=== PATIENT | female | born 2000 | race Caucasian/White ===

== ENCOUNTER 2021-01-28 15:45 | Inpatient (IN) | payer OTHER ==
[~2021-01-28] VITALS: Ht 160 cm; Wt 103.9 kg
[2021-01-28 15:57] VITALS: BP 119/77
[2021-01-28 17:08] LABS: ABSOLUTE NEUTROPHILS 14.7 thou/uL (1.4-8.2); BASOPHILS 0.2 % (0.0-2.0); EOSINOPHILS 0.1 % (0.0-3.0); HEMATOCRIT 36.6 % (37.0-47.0); HEMOGLOBIN 11.8 gm/dL (12.0-15.0); LYMPHOCYTES 6.6 % (24.0-44.0); MCH 25.8 pg (26.0-34.0); MCHC 32.4 g/dL (28.0-37.0); MCV 79.6 fL (80.0-100.0); PLATELET COUNT 306 thou/uL (150-400); POLYS 86.1 % (36.0-66.0); RDW 15.9 % (10.5-14.5); WBC 17.1 thou/uL (4.0-11.0)
[2021-01-28 17:16] LABS: CALCIUM 9.2 mg/dL (8.5-10.1); CREATININE 0.7 mg/dL (0.6-1.0)
[2021-01-28 17:20] LABS: INR 0.95; PROTIME 10.4 Seconds (10.5-12.1)
[2021-01-28 17:22] LABS: ALBUMIN 3.3 g/dL (3.4-5.0); TOTAL BILIRUBIN 0.6 mg/dL (0.2-1.0); TOTAL PROTEIN 7.9 g/dL (6.4-8.2)
[2021-01-28 17:56] LABS: URINE BILIRUBIN NEGATIVE (Negative); URINE BLOOD NEGATIVE (Negative); URINE CLARITY SL CLOUDY; URINE COLOR YELLOW; URINE GLUCOSE-RANDOM* NEGATIVE (Negative); URINE KETONES 1+ (Negative); URINE LEUKOCYTES-REFLEX NEGATIVE (Negative); URINE NITRITE-REFLEX NEGATIVE (Negative); URINE PROTEIN (DIPSTICK) TRACE (Negative); URINE SPECIFIC GRAVITY >= 1.030 (1.005-1.035); URINE UROBILINOGEN 0.2 E.U./dl (0.2-1.0)
[2021-01-28 21:06] LABS: CSF GLUCOSE 58 mg/dL (40-70); CSF PROTEIN 18 mg/dL (15-45)
[2021-01-28 21:17] LABS: CSF CLARITY CLEAR; CSF COLOR COLORLESS; CSF RBC 0 /mm3; CSF WBC 0 /mm3 (0-10); VOLUME 7.4 ml
[2021-01-29 09:54] LABS: HEMATOCRIT 34.6 % (37.0-47.0); MCH 25.3 pg (26.0-34.0); MCHC 31.9 g/dL (28.0-37.0); MCV 79.4 fL (80.0-100.0); RBC 4.36 mil/uL (4.20-5.00); RDW 15.7 % (10.5-14.5); WBC 13.7 thou/uL (4.0-11.0)
[2021-01-29 10:06] LABS: CALCIUM 8.5 mg/dL (8.5-10.1); CREATININE 0.7 mg/dL (0.6-1.0); POTASSIUM 4.2 mmol/L (3.5-5.1)
--- NOTE | 2021-01-29 12:27 | NUR ---
Chart reviewed and case discussed with the care team. Pt is being treated for viral meningitis and ID consulted. She is a&ox4 and indep prior to admission. The pt is a fulltime student. Has insurance in place for f/u care. Emergency contact is Lizbet Bell [phone]. No cm interventions indicated at this time. Will remain available should dc needs arise.
[2021-01-29 22:11] VITALS: BP 108/79
[2021-01-30 05:42] LABS: HEMATOCRIT 31.6 % (37.0-47.0); HEMOGLOBIN 10.2 gm/dL (12.0-15.0); MCH 26.3 pg (26.0-34.0); MCHC 32.4 g/dL (28.0-37.0); RBC 3.89 mil/uL (4.20-5.00); RDW 15.5 % (10.5-14.5); WBC 7.1 thou/uL (4.0-11.0)
[2021-01-30 06:09] LABS: CALCIUM 8.5 mg/dL (8.5-10.1); CREATININE 0.5 mg/dL (0.6-1.0); MAGNESIUM 1.7 mg/dL (1.8-2.4); POTASSIUM 4.6 mmol/L (3.5-5.1)
--- NOTE | 2021-01-30 08:18 | 2DMMODE ---
[facility] [place] [address] 2 D/M-MODE ECHOCARDIOGRAM Name: EROS BEAL Room #: 170-17 ADM IN M.R.#: [id number] Admission: 01/28/21 Attend Phys: Saeid Cedeno MD Discharge: Date of : 01 Report #: [id number] THIS REPORT FOR: cc: NO FAMILY PHYSICIAN or PCP NO FAMILY PHYSICIAN or PCP Phu Pacheco MD [facility] ~ APPROVED REPORT Study performed: 01/30/2021 07:30:17 EXAM: Comprehensive 2D, Doppler, and color-flow Echocardiogram Patient Location: ER Status: routine BSA: 1.93 HR: 81 bpm BP: 108/79 mmHg Rhythm: NSR Other Information Study Quality: Adequate Indications Chest Pain 2D Dimensions RVDd: 30.46 mm IVSd: 10.02 (7-11mm) LVOT Diam: 19.02 (18-24mm) LVDd: 46.18 mm PWd: 9.63 (7-11mm) Ascending Ao: 24.70 (22-36mm) LVDs: 30.86 (25-40mm) Left Atrium: 33.00 (27-40mm) Aortic Root: 28.15 mm Volumes Left Atrial Volume (Systole) Single Plane 4CH: 30.30 mL Single Plane 2CH: 19.55 mL LA ESV Index: 14.00 mL/m2 Aortic Valve AoV Peak Torsten.: 1.06 m/s AO Peak Gr.: 4.47 mmHg LVOT Max P.58 mmHg LVOT Max V: 0.95 m/s RENETTA Vmax: 2.54 cm2 [facility] [email or web address] [address] 2 D/M-MODE ECHOCARDIOGRAM Name: EROS BEAL Room #: 170-17 [facility] IN .R.#: [id number] Admission: 01/28/21 Attend Phys: Saeid Cedeno, Discharge: Date of : 01 Report #: [id number] Mitral Valve E/A Ratio: 2.0 MV Decel. Time: 134.47 ms MV E Max Torsten.: 1.00 m/s MV A Torsten.: 0.51 m/s MV PHT: 39.00 ms IVRT: 62.28 ms Pulmonary Valve PV Peak Torsten.: 0.92 m/s PV Peak Gr.: 3.37 mmHg Tricuspid Valve TR Peak Torsten.: 2.01 m/s RAP Estimate: 5.00 mmHg TR Peak Gr.: 16.15 mmHg PA Pressure: 21.00 mmHg Left Ventricle The left ventricle is normal size. There is normal LV segmental wall motion. There is normal left ventricular wall thickness. Left ventricular systolic function is normal. LVEF is 60-65%. The left ventricular diastolic function is normal. Right Ventricle The right ventricle is normal size. The right ventricular systolic function is normal. Atria The left atrium size is normal. The right atrium size is normal. Aortic Valve The aortic valve is normal in structure. No aortic regurgitation is present. There is no aortic valvular stenosis. Mitral Valve The mitral valve is normal in structure. Trace mitral regurgitation. No evidence of mitral valve stenosis. Tricuspid Valve The tricuspid valve is normal in structure. Trace tricuspid regurgitation. Estimated PAP is 21mmHg. Pulmonic Valve The pulmonary valve is normal in structure. Trace pulmonic regurgitation. [facility] [address] [place] [address] 2 D/M-MODE ECHOCARDIOGRAM Name: EROS BEAL Room #: 170-17 ADM IN M.R.#: [id number] Admission: 01/28/21 Attend Phys: Saeid Cedeno, Discharge: Date of : 01 Report #: [id number] Great Vessels The aortic root is normal in size. The ascending aorta is normal in size. IVC is normal in size and collapses >50% with inspiration. Pericardium There is no pericardial effusion. <Conclusion> Normal left ventricle size/wall thickness Ejection fraction 60% Normal right ventricular size/function Normal atrial size Normal aortic valve structure and function Trace mitral valve insufficiency Trace tricuspid valve insufficiency Pulmonary systolic pressure estimated 21 mmHg No pericardial effusion Normal aortic root size <ELECTRONICALLY SIGNED> By: Phu Pacheco MD, [facility] 01/30/21817 7 7 Phu Pacheco MD, FACC /INF
[2021-01-30 09:47] VITALS: BP 119/90
--- NOTE | 2021-01-30 12:25 | HC ---
[facility] [place] [address] CONSULTATION Name: EROS BEAL Room #: 170-17 ADM IN M.R.#: [id number] Admission: 01/28/21 Attend Phys: Saeid Cedeno MD Discharge: Date of : 01 Report #: [id number] THIS REPORT FOR: cc: NO FAMILY PHYSICIAN or PCP NO FAMILY PHYSICIAN or PCP Arturo Hernandez MD ~ DATE OF SERVICE: 01/29/2021 INFECTIOUS DISEASE CONSULTATION ATTENDING PHYSICIAN: Dr. Borrero. REASON FOR EVALUATION: Febrile illness with pharyngitis. HISTORY OF PRESENT ILLNESS: Chart reviewed. The patient examined. This is a 21-year-old woman without significant medical history, although does have a history of migraines, who had onset of illness as she awoke earlier this week, described headache that became more severe, associated neck stiffness, ultimately had fevers in excess of 102. She was evaluated in Urgent Care setting. Evaluation was otherwise unremarkable for rapid testing strep, RSV, influenza and COVID. She was referred for concern about meningitis presentation. She was not encephalopathic. Did undergo a lumbar puncture, which was unremarkable. No white cells, no red cells, normal protein and glucose. Culture was sent. Angiography showed no evidence of aneurysm, occlusion or dissection. Urinalysis was otherwise unremarkable. Chest x-ray, perhaps some mild basilar atelectasis. test was negative. Did have elevated white count initially at 17.1, repeat was down to 13. She is lucid. Has not been empirically started on antibiotics at this point. ALLERGIES: None known. CURRENT MEDICATIONS: Include tramadol, ondansetron, sumatriptan, orphenadrine as needed. PAST MEDICAL HISTORY: History of migraine headaches, anxiety and depression. 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 No recent travel. Does have cats including a kitten. She is sexually active, uses marijuana and vapes, alcohol on special occasions. FAMILY HISTORY: Noncontributory. REVIEW OF SYSTEMS: Otherwise, unremarkable. PHYSICAL EXAMINATION: GENERAL: She is alert, cooperative, appropriate. She is in mild to moderate [facility] [address] [place] [address] CONSULTATION Name: EROS BEAL Room #: 170-17 ADM IN [facility]#: [id number] Admission: 01/28/21 Attend Phys: Saeid Cedeno MD Discharge: Date of : 01 Report #: [id number] distress. She is lucid. Some decreased range of motion about the cervical spine. VITAL SIGNS: Temperature 98.8, pulse 104, respirations 18, blood pressure 126/80. HEENT: Extraocular muscles intact. There is some tender adenopathy in cervical region. LUNGS: Generally clear to auscultation. Few crackles at the bases. HEART: Regular, borderline tachycardic. I do not appreciate any murmur. ABDOMEN: Soft, nontender, mildly distended. GENITOURINARY AND RECTAL: Deferred. SKIN: No rashes. LABORATORY DATA: Procalcitonin 0.13. Troponin ____. Electrolytes: Sodium 136, potassium 4.2, chloride 103, bicarbonate 23, anion gap of 10, BUN and creatinine 7 and 0.7, glucose of 119. Estimated GFR of 107. CBC: White count of 13.7, H and H of 11.0 and 34.6, platelets of 298. CSF as noted above, clear, colorless, 0 white cells, 0 red cells, glucose of 58, protein of 18. Liver functions unremarkable, borderline elevated alkaline phosphatase of 136. Albumin ____, total protein 7.9. ASSESSMENT AND PLAN: Febrile illness with associated headache, sore throat. Screening tests otherwise unremarkable thus far. We will do additional diagnostic testing. At this point, I do not have any evidence of focal pyogenic infection. We will await blood culture results, screening for methicillin resistant Staphylococcus aureus, initiate therapy with doxycycline. <ELECTRONICALLY SIGNED> By: Arturo Hernandez MD 01/30/21 1225 [id number] 0023 Arturo Hernandez MD /nt
[2021-01-30 12:59] VITALS: BP 117/88
[2021-01-30 16:05] VITALS: BP 117/88
--- NOTE | 2021-01-30 16:31 | NUR ---
Pt likely dcing home later today. She reports her mom or aunt can pick her up. She is needed a letter verifying her inpt stay and ID recommendations that she not return to work until her f/u appt with Dr. Hernandez,ID next week. Letter provided to the pt along with Dr. Hernandez's office number. 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 She is stressed about money if she can not work for another week but will see if her parents can help her out this month. Support provided. She is feeling better. Case discussed with the ER staff.
[2021-01-30] MEDS ORDERED: DOXYCYCLINE 10100 M2 PO (16:53)
[2021-01-30] MEDS ORDERED: WORK RELEASE (16:58)
[2021-01-30 17:18] VITALS: BP 130/85
[2021-01-31 21:06] LABS: SYPHILIS AB Non Reactive (Non Reactive)
== END 2021-01-30 17:20 | disposition home or self-care (01) | DRG 76 ==
LOC: ER 15:45 → EROBS 21:33
PROVIDERS: Emergency Medicine; Nurse Practitioner Family; Specialist; ADMIT Internal Medicine; ATTEND Internal Medicine
DX: A87.9 Viral meningitis, unspecified (principal); F41.9 Anxiety disorder, unspecified; F32.A Depression, unspecified; G43.909 Migraine, unspecified, not intractable, without status migrainosus; Z20.822 Contact with and (suspected) exposure to COVID-19